=== PATIENT | female | born 1990 | race Caucasian/White ===

== ENCOUNTER 2019-07-19 17:21 | Emergency (ER) | payer BC ==
[2019-07-19] MEDS: ACETAMINOPHEN 325 MG TAB PO (17:50)
== END 2019-07-19 19:19 | disposition home or self-care (01) ==
LOC: FTE 17:21
DX: S10.93XA Contusion of unspecified part of neck, initial encounter (principal); Y09 Assault by unspecified means
CPT/HCPCS: 70360; 99283-25